=== PATIENT | male | born 1945 | race Caucasian/White ===

== ENCOUNTER 2016-09-23 11:12 | Emergency (ER) | payer OTHER, MEDICARE ==
[2016-09-23 11:23] VITALS: BP 154/69; PULSE 96; TEMP 98.1; BMI 29.2
[2016-09-23] MEDS ORDERED: CYCLOBENZAPRINE HCL 10 MG TABLET (FP) PO ONE (12:12)
[2016-09-23] MEDS ORDERED: OXYCODONE/APAP 5/325MG COMBO TABLET PO ONE (12:12)
[2016-09-23] MEDS ORDERED: ACETAMINOPHEN 325 MG TABLET (FP) PO ONE (12:12)
[2016-09-23] MEDS ORDERED: ACETAMINOPHEN 325 MG TABLET (FP) ONE (12:16)
[2016-09-23] MEDS ORDERED: CYCLOBENZAPRINE HCL 10 MG TABLET (FP) ONE (12:17)
[2016-09-23] MEDS ORDERED: OXYCODONE/APAP 5/325MG COMBO TABLET ONE (12:17)
--- NOTE | 2016-09-23 12:54 | PDOC ---
History of Present Illness - General Chief Complaint: Pain Stated Complaint: PAIN, NUMBNESS/ LT ARM, BACK Time Seen by Provider: 09/23/16 11:32 History Source: Patient Exam Limitations: No Limitations - History of Present Illness Initial Comments: 09/23/16 12:33 71-year-old male presents to the ED with complaints of continual posterior neck pain. Patient states was prescribed Flexeril and ibuprofen but states medicine is not working and feels he needs something stronger. Patient states was here a few days ago and a cardiac workup but states the pain was more in his neck. Patient denies difficulty swallowing, headache, dizziness, chest pain or shortness of breath. Patient states it's difficult for him to eat or turn his head secondary to pain. Patient is following up with his PCP this week but is requesting meds for pain control presently. Timing/Duration: constant, getting worse Severity: moderate, severe Associated Symptoms: reports: other Past History - Past Medical History Allergies/Adverse Reactions: Allergies Allergy/AdvReac Type Severity Reaction Status Date / Time No Known Allergies Allergy Verified 09/23/16 11:23 Home Medications: Ambulatory Orders Naproxen [EC-Naprosyn] 375 mg PO BID #10 tablet.ec 09/23/16 Prednisone [Deltasone -] 60 mg PO DAILY #15 tablet 09/23/16 Other medical history: NONE - Psycho/Social/Smoking Cessation Hx Anxiety: No Suicidal Ideation: No Smoking History: Never smoked Number of Cigarettes Smoked Daily: 12 Hx Alcohol Use: No Drug/Substance Use Hx: No Substance Use Type: None Patient Lives Alone: No Lives with/in: brother Review of Systems - Review of Systems Able to Perform ROS?: Yes Constitutional: No: Symptoms Reported HEENTM: No: Symptoms Reported Respiratory: No: Symptoms reported Cardiac (ROS): No: Symptoms Reported ABD/GI: No: Symptoms Reported : No: Symptoms Reported Musculoskeletal: Yes: Muscle Pain (bilateral upper neck), Neck Pain Integumentary: No: Symptoms Reported Neurological: No: Symptoms reported Endocrine: No: Symptoms Reported Hematologic/Lymphatic: No: Symptoms Reported *Physical Exam - Vital Signs Last Vital Signs Temp Pulse Resp BP Pulse Ox 98.1 F 96 H 20 154/69 98 09/23/16 11:20 09/23/16 11:20 09/23/16 11:20 09/23/16 11:20 09/23/16 11:20 - Physical Exam General Appearance: Yes: Nourished, Appropriately Dressed. No: Apparent Distress HEENT: negative: Pale Conjunctivae Neck: positive: Tender (C5 to C7), Supple, Decreased range of motion (unable to lift head to erect position secondary to the pain) Respiratory/Chest: positive: Lungs Clear, Normal Breath Sounds. negative: Respiratory Distress, Accessory Muscle Use Cardiovascular: positive: Regular Rhythm, Regular Rate. negative: Murmur Gastrointestinal/Abdominal: positive: Hernia (umbilical) Integumentary: positive: Normal Color, Warm, Moist Neurologic: positive: Motor Strength 5/5 (ambulatory) ED Treatment Course - RADIOLOGY Radiology Studies Ordered: Category Date Time Status CERVICAL SPINE CT W/O CONTR [CT] Stat CT Scan 09/23/16 12:11 Ordered - Medications Given in the ED: ED Medications Discontinued Medications Generic Name Dose Route Start Last Admin Trade Name Freq PRN Reason Stop Dose Admin Acetaminophen 650 mg 09/23/16 12:12 09/23/16 12:22 Tylenol - PO 09/23/16 12:13 650 mg ONCE ONE Administration Cyclobenzaprine HCl 5 mg 09/23/16 12:12 09/23/16 12:22 Flexeril - PO 09/23/16 12:13 5 mg ONCE ONE Administration Oxycodone/Acetaminophen 1 combo 09/23/16 12:12 09/23/16 12:22 Percocet 5/325 - PO 09/23/16 12:13 1 combo ONCE ONE Administration Medical Decision Making - Medical Decision Making 09/23/16 12:39 Pt with continual posterior neck pain despite taking Flexeril Motrin. Patient doesn't have point tenderness at C5-C7. Patient had a CTA done a few days ago which did not view the neck. Patient ordered for cervical C-spine without contrast patient also ordered for Percocet and Flexeril here in the ER 09/23/16 13:41 Patient's C-spine shows mild multi level degenerative disc space narrowing with the lower half of the cervical spine with associated ventral spondylosis. No facet arthropathy is seen. There is no definite central canal stenosis. Multiple to level bilateral foraminal stenosis are noted secondary to uncovertebral joint hypertrophy. No gross disc herniation is seen a line for beam hardening artifact within the lower half of the cervical spine. Since patient's pain has not been controlled with ibuprofen and flexural. Patient be discharged home with a short course of oral steroids and increase his NSAIDs for Naprosyn *DC/Admit/Observation/Transfer Diagnosis at time of Disposition: Cervical radiculopathy - Discharge Dispostion Disposition: HOME Condition at time of disposition: Good - Prescriptions Prescriptions: Prednisone [Deltasone -] 60 mg PO DAILY #15 tablet Naproxen [EC-Naprosyn] 375 mg PO BID #10 tablet.ec - Referrals Referrals: Charanjit Gomez MD [Primary Care Provider] - Neo Araiza MD [Staff Physician] - - Patient Instructions Printed Discharge Instructions: DI for Cervical Radiculopathy Additional Instructions: Please take Naprosyn with the Flexeril and stop taking the Motrin. I also prescribed a short course of steroids which may alleviate the inflammation. I've also given a referral to a neurosurgeon for management. Please bring copy of your CAT scan with by mouth to your PCP and referred neurosurgeon
[2016-09-23] MEDS ORDERED: KETOROLAC TROMETHAMINE 60 MG/2 ML VIAL IM ONE (13:54)
[2016-09-23] MEDS ORDERED: KETOROLAC TROMETHAMINE 30 MG/1 ML VIAL ONE (13:57)
== END 2016-09-23 14:07 | disposition home or self-care (01) ==
LOC: JERFT 11:12
PROC: 3E0233Z Introduction of Anti-inflammatory into Muscle, Percutaneous Approach (ICD-10-PCS; principal; 2016-09-23)
DX: M54.12 Radiculopathy, cervical region (principal)
CPT/HCPCS: 72125-TC; 96372; 99281-25